=== PATIENT | female | born 1950 | race Caucasian/White ===

== ENCOUNTER 2023-05-17 23:27 | Emergency (ER) | payer MEDICARE, BC ==
[2023-05-18 00:43] LABS: BASOPHILS ABSOLUTE AUTO 0.01 K/mm3 (0.01-0.08); BASOPHILS PERCENT AUTO 0.1 % (0.1-1.2); EOSINOPHILS PERCENT AUTO 0 (0.7-5.8); HEMATOCRIT 31.8 % (34.1-44.9); HEMOGLOBIN 11.6 gm/dl (11.2-15.7); IMMATURE GRAN ABSOLUTE AUTO 0.15 K/mm3 (0.00-0.10); IMMATURE GRAN PERCENT AUTO 1.3 % (<=1.0); LYMPHOCYTES ABSOLUTE AUTO 0.63 K/mm3 (1.18-3.74); LYMPHOCYTES PERCENT AUTO 5.4 % (19.3-51.7); MEAN CORPUSCULAR HEMOGLOBIN 31.3 pg (25.6-32.2); MEAN CORPUSCULAR HGB CONC 36.5 g/dl (32.2-35.5); MEAN CORPUSCULAR VOLUME 85.7 fl (79.4-94.8); MEAN PLATELET VOLUME 9.9 fl (9.4-12.3); MONOCYTES ABSOLUTE AUTO 0.44 K/mm3 (0.24-0.36); MONOCYTES PERCENT AUTO 3.8 % (4.7-12.5); NEUTROPHILS ABSOLUTE AUTO 10.36 K/mm3 (1.56-6.13); NEUTROPHILS PERCENT AUTO 89.4 % (34.0-71.1); PLATELET COUNT,PLT 98 K/mm3 (182-369); RED BLOOD CELL COUNT 3.71 M/mm3 (3.98-5.22); WHITE BLOOD CELL COUNT,WBC 11.59 K/mm3 (3.98-10.04)
[2023-05-18 01:02] LABS: A/G RATIO 0.9 (1-2); ALBUMIN 2.7 g/dl (3.4-5.0); ANION GAP 15.1 (5-15); BILIRUBIN TOTAL 10.2 mg/dL (0.2-1.0); BUN/CREATININE RATIO 19.2 (14-18); CALCIUM 8.5 mg/dL (8.5-10.1); EST CRCL DRUG DOSING (CG) 31.41 mL/min; MAGNESIUM 1.4 mg/dL (1.8-2.4)
[2023-05-18 01:04] LABS: CREATININE 1.2 mg/dL (0.55-1.02)
[2023-05-18 01:05] LABS: POTASSIUM,K 3.1 mEq/L (3.5-5.1); PROTEIN TOTAL,TP 5.7 g/dl (6.4-8.2)
[2023-05-18 01:16] LABS: SLIDE REVIEW ABNORMAL SMEAR
[2023-05-18] MEDS ORDERED: Potassium Chloride 20 MEQ Tab.ER PO ONE (01:26)
[2023-05-18] MEDS ORDERED: Magnesium Oxide 400 MG Tab PO ONE (01:26)
[2023-05-18] MEDS ORDERED: Ondansetron 4 MG/2 ML SDV IVPUSH ONE (01:38)
[2023-05-18] MEDS ORDERED: Sodium Chloride 0.9% 1,000 ML IV ONE ×2 (01:40→02:42)
== END 2023-05-18 04:39 | disposition home or self-care (01) ==
LOC: JD.ED 23:27
DX: E86.0 Dehydration (principal); I95.9 Hypotension, unspecified; C25.9 Malignant neoplasm of pancreas, unspecified; J44.9 Chronic obstructive pulmonary disease, unspecified; E11.9 Type 2 diabetes mellitus without complications; Z79.84 Long term (current) use of oral hypoglycemic drugs; Z91.013 Allergy to seafood; Z86.16 Personal history of COVID-19
CPT/HCPCS: 36415; 71045; 80053; 83690; 83735; 85025; 86140; 96361; 96374; 99285; A9270; J2405; J7030